=== PATIENT | female | born 1990 | race Caucasian/White ===

== ENCOUNTER 2019-01-18 14:30 | Emergency (ER) | payer OTHER ==
[~2019-01-18] VITALS: Ht 152.4 cm; Wt 98.9 kg
--- OUTSIDE RECORDS SUMMARY | 2019-01-18 14:32 | XMS REPORT ---
Author Author [facility] Address Unknown Phone Unavailable Care Team Providers Care Agricultural Agent Name Role Phone Unavailable Unavailable Payers Payer Name Policy Type Policy Number Effective Date Expiration Date Problems This patient has no known problems. Allergies, Adverse Reactions, Alerts Allergy Name Allergy Type Status Severity Reaction(s) Onset Date Inactive Date Treating Clinician Comments No Known Allergies DA Active U 2018-11-14 00:00:00 No Known Allergies DA Active U 2018-05-19 00:00:00 Medications This patient has no known medications. Results Test Description Test Time Test Comments Text Results Atomic Results Result Comments CBC W/AUTO DIFF 2018-11-15 08:26:00 WHITE BLOOD CELL (test code=WBC) 14.52 x10 3/uL 4.5-11.0 RED BLOOD CELL (test code=RBC) 3.62 x10 6/uL 3.54-5.02 HEMOGLOBIN (test code=HGB) 10.4 g/dL 11.0-15.0 HEMATOCRIT (test code=HCT) 32.7 % 33.0-45.0 MEAN CELL VOLUME (test code=MCV) 90.3 fL 81.0-99.0 MEAN CELL HGB (test code=MCH) 28.7 pg 27.0-33.0 MEAN CELL HGB CONCETRATION (test code=MCHC) 31.8 g/dL 33.0-37.0 RED CELL DISTRIBUTION WIDTH CV (test code=RDW) 14.8 % 11.5-14.5 RED CELL DISTRIBUTION WIDTH SD (test code=RDW-SD) 48.8 fL 37.0-54.0 PLATELET COUNT (test code=PLT) 172 x10 3/uL 150-400 IMMATURE PLATELET FRACTION (test code=IPF) 11.8 % 0.9-11.2 MEAN PLATELET VOLUME (test code=MPV) 12.8 fL 7.0-9.0 NEUTROPHIL % (test code=NT%) 75.7 % 56.0-77.0 IMMATURE GRANULOCYTE % (test code=IG%) 1.2 % 0.0-2.0 LYMPHOCYTE % (test code=LY%) 14.6 % 14.0-32.0 MONOCYTE % (test code=MO%) 7.4 % 4.8-9.0 EOSINOPHIL % (test code=EO%) 0.8 % 0.3-3.7 BASOPHIL % (test code=BA%) 0.3 % 0.0-2.0 NUCLEATED RBC % (test code=NRBC%) 0.0 % 0-0 NEUTROPHIL # (test code=NT#) 10.98 x10 3/uL 2.0-7.6 IMMATURE GRANULOCYTE # (test code=IG#) 0.18 x10 3/uL 0.00-0.03 LYMPHOCYTE # (test code=LY#) 2.12 x10 3/uL 1.0-3.8 MONOCYTE # (test code=MO#) 1.07 x10 3/uL 0.1-0.8 EOSINOPHIL # (test code=EO#) 0.12 x10 3/uL 0.0-0.2 BASOPHIL # (test code=BA#) 0.05 x10 3/uL 0.0-0.2 NUCLEATED RBC # (test code=NRBC#) 0.00 x10 3/uL 0.0-0.1 MANUAL DIFF REQUIRED (test code=MDIFF) NO CORD ARTERIAL BLOOD [id number] 21:44:00* Test Item Value Reference Range Comments CORD BLOOD PH (test code=PH/C) 7.22 7.20-7.30 CORD BLOOD PCO2 (test code=PCO2/C) 49 MMHG 45-50 CORD BLOOD PO2 (test code=PO2/C) 13 mmHg 15-25 CORD BLOOD HCO3 (test code=HCO3/C) 20 mmol/L 15-25 BASE EXCESS CORD (test code=LALI/C) -8.0 mmol/L -5-5 O2 SATURATION (test code=O2S/C) 10 % 25-45 AMNISURE (ROM) [id number] 15:36:00* Test Item Value Reference Range Comments AMNISURE (ROM) TEST (test code=AMNI) POSITIVE NEGATIVE RAPID PLASMA [id number] 11:08:00* Test Item Value Reference Range Comments RAPID PLASMA REAGIN (test code=RPR) NONREACTIVE NONREACTIVE AG HEPATITIS B [id number] 11:08:00* Test Item Value Reference Range Comments AG HEPATITIS B SURFACE (test code=HBSAG) NON REACTIVE INDEX NonReactive AB HIV 1 11:08:00* Test Item Value Reference Range Comments AB HIV 1 2 (test code=IEL29BT) NONREACTIVE INDEX NONREACTIVE RAPID PLASMA [id number] 14:36:00* Test Item Value Reference Range Comments RAPID PLASMA REAGIN (test code=RPR) NONREACTIVE AG HEPATITIS B [id number] 14:36:00* Test Item Value Reference Range Comments AG HEPATITIS B SURFACE (test code=HBSAG) NON REACTIVE INDEX NonReactive AB HIV 1 14:36:00* Test Item Value Reference Range Comments AB HIV 1 2 (test code=QVP93US) NONREACTIVE INDEX NONREACTIVE CBC W/AUTO [id number] 13:13:00* Test Item Value Reference Range Comments WHITE BLOOD CELL (test code=WBC) 11.89 x10 3/uL 4.5-11.0 RED BLOOD CELL (test code=RBC) 4.06 x10 6/uL 3.54-5.02 HEMOGLOBIN (test code=HGB) 11.8 g/dL 11.0-15.0 HEMATOCRIT (test code=HCT) 37.1 % 33.0-45.0 MEAN CELL VOLUME (test code=MCV) 91.4 fL 81.0-99.0 MEAN CELL HGB (test code=MCH) 29.1 pg 27.0-33.0 MEAN CELL HGB CONCETRATION (test code=MCHC) 31.8 g/dL 33.0-37.0 RED CELL DISTRIBUTION WIDTH CV (test code=RDW) 14.8 % 11.5-14.5 RED CELL DISTRIBUTION WIDTH SD (test code=RDW-SD) 49.7 fL 37.0-54.0 PLATELET COUNT (test code=PLT) 187 x10 3/uL 150-400 IMMATURE PLATELET FRACTION (test code=IPF) 11.4 % 0.9-11.2 MEAN PLATELET VOLUME (test code=MPV) 12.8 fL 7.0-9.0 NEUTROPHIL % (test code=NT%) 77.4 % 56.0-77.0 IMMATURE GRANULOCYTE % (test code=IG%) 1.7 % 0.0-2.0 LYMPHOCYTE % (test code=LY%) 13.3 % 14.0-32.0 MONOCYTE % (test code=MO%) 6.3 % 4.8-9.0 EOSINOPHIL % (test code=EO%) 1.0 % 0.3-3.7 BASOPHIL % (test code=BA%) 0.3 % 0.0-2.0 NUCLEATED RBC % (test code=NRBC%) 0.0 % 0-0 NEUTROPHIL # (test code=NT#) 9.20 x10 3/uL 2.0-7.6 IMMATURE GRANULOCYTE # (test code=IG#) 0.20 x10 3/uL 0.00-0.03 LYMPHOCYTE # (test code=LY#) 1.58 x10 3/uL 1.0-3.8 MONOCYTE # (test code=MO#) 0.75 x10 3/uL 0.1-0.8 EOSINOPHIL # (test code=EO#) 0.12 x10 3/uL 0.0-0.2 BASOPHIL # (test code=BA#) 0.04 x10 3/uL 0.0-0.2 NUCLEATED RBC # (test code=NRBC#) 0.00 x10 3/uL 0.0-0.1 MANUAL DIFF REQUIRED (test code=MDIFF) NO RAPID PLASMA [id number] 13:03:00* Test Item Value Reference Range Comments RAPID PLASMA REAGIN (test code=RPR) NONREACTIVE AG HEPATITIS B [id number] 13:03:00* Test Item Value Reference Range Comments AG HEPATITIS B SURFACE (test code=HBSAG) NON REACTIVE INDEX NonReactive AB HIV 1 13:03:00* Test Item Value Reference Range Comments AB HIV 1 2 (test code=[id number]) INDEX NONREACTIVE
== END 2019-01-18 16:08 | disposition home or self-care (01) ==
LOC: FSED 14:30
DX: R05 Cough (principal); J40 Bronchitis, not specified as acute or chronic; R51 Headache
CPT/HCPCS: 99282

== ENCOUNTER 2019-07-02 16:34 | Emergency (ER) | payer MEDICARE ==
[~2019-07-02] VITALS: Ht 154.9 cm; Wt 93.2 kg
== END 2019-07-02 17:30 | disposition home or self-care (01) ==
LOC: FSED 16:34
DX: J02.0 Streptococcal pharyngitis (principal); M54.2 Cervicalgia; R51 Headache; J45.909 Unspecified asthma, uncomplicated
CPT/HCPCS: 99282

== ENCOUNTER 2019-12-07 19:25 | Emergency (ER) | payer MEDICARE, OTHER ==
[~2019-12-07] VITALS: Ht 154.9 cm; Wt 93.0 kg
[~2019-12-07 19:25] MED LIST: CLINDAMYCIN HC150 MG PO; IBUPROFEN600 MG PO
[2019-12-07] MEDS ORDERED: TAMIFLU75 MG PO (20:04)
== END 2019-12-07 20:10 | disposition home or self-care (01) ==
LOC: FSED 19:25
DX: R50.9 Fever, unspecified (principal); R05 Cough; J11.1 Influenza due to unidentified influenza virus with other respiratory manifestations
CPT/HCPCS: 87400; 99283